=== PATIENT | female | born 1995 | race Caucasian/White ===

== ENCOUNTER → 2017-07-01 | Outpatient (CLI) | payer OTHER | END | disposition home or self-care (01) | LOC: C.PAPS 18:12 | PROVIDERS: ATTEND Physician Assistant | DX: Z01.419 Encounter for gynecological examination (general) (routine) without abnormal findings (principal) ==

== ENCOUNTER → 2017-07-01 | Outpatient (CLI) | payer OTHER | END | disposition home or self-care (01) | LOC: C.LABSPEC 15:45 | PROVIDERS: ATTEND Physician Assistant | DX: Z11.8 Encounter for screening for other infectious and parasitic diseases (principal); Z11.3 Encounter for screening for infections with a predominantly sexual mode of transmission ==